=== PATIENT | female | born 1970 | race Caucasian/White ===

== ENCOUNTER 2017-07-02 08:32 | Emergency (ER) | payer OTHER ==
[~2017-07-02] VITALS: Ht 157.5 cm; Wt 104.3 kg
[~2017-07-02 08:32] MED LIST: SYNTHROID50 MCG PO
== END 2017-07-02 15:37 | disposition home or self-care (01) ==
LOC: ER 08:32
DX: K52.89 Other specified noninfective gastroenteritis and colitis (principal)

== ENCOUNTER 2017-07-10 04:52 | Day surgery (SDC) | payer OTHER ==
[2017-07-10] MEDS ORDERED: MACROBID 100 M100 MG PO (11:27)
[2017-07-10] MEDS ORDERED: ULTRACET PO (11:28)
== END 2017-07-10 12:55 | disposition home or self-care (01) ==
LOC: CIR.AMB 04:52
DX: N36.41 Hypermobility of urethra (principal); N39.3 Stress incontinence (female) (male)

== ENCOUNTER 2018-01-15 08:55 | Emergency (ER) | payer OTHER ==
[~2018-01-15] VITALS: Ht 157.5 cm; Wt 103.0 kg
[~2018-01-15 08:55] MED LIST changes: +MACROBID 100 M100 MG PO; +ULTRACET PO
== END 2018-01-15 12:04 | disposition home or self-care (01) ==
LOC: ER 08:55
DX: N39.0 Urinary tract infection, site not specified (principal); B96.29 Other Escherichia coli [E. coli] as the cause of diseases classified elsewhere

== ENCOUNTER 2019-01-21 10:21 | Emergency (ER) | payer OTHER ==
[~2019-01-21] VITALS: Ht 157.5 cm; Wt 99.8 kg
== END 2019-01-21 14:14 | disposition home or self-care (01) ==
LOC: ER 10:21
DX: M94.0 Chondrocostal junction syndrome [Tietze] (principal)

== ENCOUNTER 2020-07-22 11:50 | Outpatient (CLI) | payer OTHER | END 2020-07-22 11:58 | disposition home or self-care (01) | LOC: SONOGRAMA 11:50 | PROVIDERS: ATTEND Pathology Anatomic Pathology & Clinical Pathology | DX: E04.1 Nontoxic single thyroid nodule (principal) ==

== ENCOUNTER → 2023-11-07 | Emergency (ER) | payer OTHER ==
[~2023-11-07] VITALS: Ht 157.5 cm; Wt 129.7 kg
[~2023-11-07] MED LIST changes: +DIOVAN40 MG; +FAMOTIDINE/PF 20 MG/2 ML VIAL IV PUSH ONE; +FAMOTIDINE/PF 20 MG/2 ML VIAL ONE; +KETO10TA2 PO; +TRAMADOL HCL 50 MG TABLET PO ONE
[2023-11-07 11:42] LABS: HEMATOCRIT 40.5 % (36.0-45.00); HEMOGLOBIN 13.4 g/dL (12.0-15.00); MEAN CELL VOLUME 85.1 fL (80.00-100.00); MEAN CORPUSCULAR HEMOGLOBIN 28.2 pg (27.00-32.0); MEAN CORPUSCULAR HGB CONC 33.1 g/dl (32.0-36.0); PLATELET COUNT 279 K/uL (150-450); RED BLOOD COUNT 4.76 M/uL (4.00-6.00); RED CELL DISTRIBUTION WIDTH 14.7 % (11.5-14.5)
[2023-11-07 12:12] LABS: CALCIUM 9.1 mg/dL (8.5-10.1); CREATININE SERUM 0.83 mg/dL (0.55-1.02); GFR 72.19; POTASSIUM 3.75 mEq/L (3.5-5.1)
[2023-11-07 13:21] LABS: INR 1.04; PROTHROMBIN TIME 11.3 SECONDS (9.0-11.5)
[2023-11-07 13:50] LABS: D DIMER 0.22 MG/L; PARTIAL THROMBOPLASTIN TIME 32.7 SECONDS (22.0-34.0)
== END | disposition home or self-care (01) ==
LOC: ER 09:35
PROVIDERS: General Practice
DX: M79.605 Pain in left leg (principal); M79.89 Other specified soft tissue disorders; I10 Essential (primary) hypertension; E03.8 Other specified hypothyroidism

== ENCOUNTER 2024-03-03 11:09 | Emergency (ER) | payer OTHER ==
[~2024-03-03] VITALS: Ht 157.5 cm; Wt 119.3 kg
[~2024-03-03 11:09] MED LIST changes: -FAMOTIDINE/PF 20 MG/2 ML VIAL IV PUSH ONE; -FAMOTIDINE/PF 20 MG/2 ML VIAL ONE; -TRAMADOL HCL 50 MG TABLET PO ONE
[2024-03-03] MEDS ORDERED: ZEPBOUND7.5 MG/0.5 (11:25)
[2024-03-03 15:44] LABS: HEMATOCRIT 41.7 % (36.0-45.00); HEMOGLOBIN 13.6 g/dL (12.0-15.00); MEAN CELL VOLUME 86.3 fL (80.00-100.00); MEAN CORPUSCULAR HEMOGLOBIN 28.2 pg (27.00-32.0); MEAN CORPUSCULAR HGB CONC 32.7 g/dl (32.0-36.0); PLATELET COUNT 320 K/uL (150-450); RED BLOOD COUNT 4.83 M/uL (4.00-6.00); RED CELL DISTRIBUTION WIDTH 14.3 % (11.5-14.5)
== END 2024-03-03 20:38 | disposition home or self-care (01) ==
LOC: ER 11:11
PROVIDERS: General Practice
DX: J06.9 Acute upper respiratory infection, unspecified (principal); Z20.822 Contact with and (suspected) exposure to COVID-19